=== PATIENT | male | born 1975 | race Two or more races ===

== ENCOUNTER 2017-07-31 13:03 | Emergency (ER) | payer SELFPAY ==
[~2017-07-31] VITALS: Ht 170.2 cm; Wt 77.1 kg
[2017-07-31 13:03] VITALS: BP 144/95
== END 2017-07-31 14:05 | disposition home or self-care (01) ==
LOC: ER 13:05
DX: F12.10 Cannabis abuse, uncomplicated (principal)
CPT/HCPCS: A4606; Z7610